=== PATIENT | male | born 2000 | race African-American/Black ===

== ENCOUNTER 2021-01-15 01:03 | Emergency (ER) | payer OTHER ==
[2021-01-15] MEDS ORDERED: Lidocaine 1% w/Epinephrine 1:100K 20 ML VIAL ONE (01:52)
== END 2021-01-15 03:00 ==
LOC: ERS 01:03
DX: S01.81XA Laceration without foreign body of other part of head, initial encounter (principal); W01.0XXA Fall on same level from slipping, tripping and stumbling without subsequent striking against object, initial encounter
CPT/HCPCS: 12013